=== PATIENT | female | born 1970 | race Caucasian/White ===

== ENCOUNTER 2017-10-14 08:57 | Emergency (ER) | payer BC ==
--- NOTE | 2017-10-14 09:15 | UC ---
Respiratory Complaint HPI - HPI Summary HPI Summary: 47 y/o female presents to the urgent care c/o productive cough, ODONNELL, chills, nasal congestion w/ yellowish nasal discharge since last week. Pt reports she had to use her inhaler last Saturday due to mild wheezing, which is now resolved. Mild low grade fever. Pain 4/10. Pt has taken Advil today to alleviate ODONNELL. Pt denies SOB, wheezing, chest pain, abdominal pain, N/V/D. - History of Current Complaint Stated Complaint: CONGESTION FEVER Time Seen by Provider: 10/14/17 09:10 Hx Obtained From: Patient Hx Last Menstrual Period: JANUARY 30, 2016 Onset/Duration: Gradual Onset, Lasting Weeks - 1 week, Still Present, Worse Since - yesterday Timing: Intermittent Episodes Severity Initially: Mild Severity Currently: Moderate Pain Intensity: 5 - headache Pain Scale Used: 0-10 Numeric Character: Cough: Productive - yellowish phlegm Aggravating Factors: Recumbent Position Alleviating Factors: Bronchodilator Associated Signs And Symptoms: Positive: Chills, Wheezing - rlast Saturday which resolved now, URI, Nasal Congestion, Sinus Discomfort - Risk Factors Pulmonary Embolism Risk Factors: Negative Cardiac Risk Factors: Negative Pseudomonas Risk Factors: Negative Tuberculosis Risk Factors: Negative - Allergies/Home Medications Allergies/Adverse Reactions: Allergies Allergy/AdvReac Type Severity Reaction Status Date / Time MS Penicillins [Penicillins] Allergy Severe Anaphylatic Verified 10/14/17 09:26 Shock MS Shellfish-derived Products Allergy Severe HIVES AND Verified 10/14/17 09:26 [Shellfish-derived Products] SWELLING MS Sulfa Antibiotics Allergy Intermediate Rash Verified 10/14/17 09:26 [Sulfa Antibiotics] PMH/Surg Hx/FS Hx/Imm Hx Previously Healthy: Yes Respiratory History: Asthma - Surgical History Surgical History: Yes Surgery Procedure, Year, and Place: TONSILLECTOMY, GALL BLADDER REMOVAL. GASTRIC BYPASS - Family History Known Family History: Positive: Cardiac Disease, Hypertension, Diabetes - Social History Occupation: Employed Full-time Lives: With Family Alcohol Use: Occasionally Substance Use Type: None Smoking Status (MU): Never Smoked Tobacco Have You Smoked in the Last Year: No Review of Systems Constitutional: Chills, Fatigue, Other Skin: Negative Eyes: Negative ENT: Nasal Discharge, Sinus Congestion Respiratory: Cough - productive Cardiovascular: Negative Gastrointestinal: Negative Genitourinary: Negative Motor: Negative Musculoskeletal: Negative Neurological: Headache Is Patient Immunocompromised?: No All Other Systems Reviewed And Are Negative: Yes Physical Exam Triage Information Reviewed: Yes - Additional Comments Vital Signs Reviewed: Yes General: well developed, well nourished female sitting in the examining table w/ o any apparent distress Eyes: Positive: Conjunctiva Clear - PERRLA, EOMI, fundi grossly normal ENT: Positive: Normal ENT inspection, Hearing grossly normal, Pharynx normal, Nasal congestion - edematous and erythematous nasal mucosa, Nasal drainage - yellowish drainage, TMs normal. Negative: Tonsillar swelling, Tonsillar exudate Neck: Positive: Supple, Nontender, No Lymphadenopathy Respiratory: no orthopnea or dyspnea. Able to speak in full sentences, no retractions or accessory muscle use, no tripod position, stridor, or head bobbing. CTA bilaterally, Positive posterior upper lungs w/ mild rhosnchi, no wheezing or rales. Cardiovascular: Positive: RRR, No Murmur, Pulses Normal, Brisk Capillary Refill Abdomen Description: Positive: Nontender, No Organomegaly, Soft. Negative: CVA Tenderness (R), CVA Tenderness (L) Bowel Sounds: Positive: Present Musculoskeletal Exam: Normal Musculoskeletal: Positive: Strength Intact, ROM Intact, No Edema Neurological Exam: Normal Psychological Exam: Normal Skin Exam: Normal Respiratory Course/Dx - Course Course Of Treatment: 47 y/o female presents to the urgent care c/o productive cough, ODONNELL, chills, nasal congestion w/ yellowish nasal discharge since last week. Pt reports she had to use her inhaler last Saturday due to mild wheezing, which is now resolved. Mild low grade fever. Pain 4/10. Pt has taken Advil today to alleviate ODONNELL. Pt denies SOB, wheezing, chest pain, abdominal pain, N/V/ D.Hx obtained. Pt with Acute bronchitis on examination. Pt Rx Z-stephanie, Tessalon PO and Albuterol inhaler to alleviate bronchospasm. Pt advised to increase fluid intake and eat well. if not improvement or worsening of symptoms to return to the urgent care or f/u with PCP for further management. pt understood and agreed with plan of care - Differential Dx/Diagnosis Differential Diagnosis/HQI/PQRI: Asthma, Bronchitis, Influenza, Lower Resp Infection, Sinusitis Provider Diagnoses: 1- Acute bronchitis. 2-cough Discharge - Discharge Plan Condition: Stable Disposition: HOME Prescriptions: Albuterol HFA INHALER* [Ventolin HFA Inhaler*] 1 - 2 puff INH Q6H PRN #1 mdi PRN Reason: Cough Azithromyxin STEPHANIE (NF) [Z-Stephanie (Zithromax) 250 mg tabs #6] 2 tab PO .TODAY, THEN 1 DAILY #6 tab Benzonatate CAP* [Tessalon 100 MG CAP*] 100 mg PO TID PRN #15 cap PRN Reason: Cough Patient Education Materials: Acute Bronchitis (ED) Referrals: [facility] [Outside] - 3 Days Additional Instructions: 1-Please take full course of antibiotic to avoid resistance. 2-Take Tessalon PO tabs as directed and use the albuterol inhaler to alleviate cough. Increase fluid intake, rest and eat well. 3- If symptoms do not improve or worsen or your develop SOB with fever and severe wheezing please go immediately to the ER further evaluation and treatment. 4- F/u with your PCP in 2-3 days for further management .
[2017-10-14 09:25] VITALS: BP 95/50
== END 2017-10-14 09:46 | disposition home or self-care (01) ==
LOC: UCCORT 08:57
DX: J20.9 Acute bronchitis, unspecified (principal); R05 Cough; J45.909 Unspecified asthma, uncomplicated; Z72.89 Other problems related to lifestyle
CPT/HCPCS: 99212; G0463

== ENCOUNTER 2019-12-01 07:31 | Emergency (ER) | payer BC ==
[2019-12-01 07:45] VITALS: BP 111/72
--- NOTE | 2019-12-01 08:08 | UC ---
Telehealth HPI HPI Summary: SPOKE TO THE PT. ON THE PHONE 49 Y/O FEMALE WITH 1 DAY HX OF FEVER, CHILLS, BODY ACHES , GENITAL SORES SYMPTOMS STARTED LAST NIGHT WHEN SHE WENT HOME FROM WORK , SYMPTOMS ARE MODERATED, 6 OUT 10 , WORSE WITH ACTIVITY , BETTER WITH REST, HAD A FEVER OF 101 LAST NIGHT , NO FEVER THIS MORNING, DENIES COUGH , NO SORE THROAT, NO COLD SYMPTOMS . HISTORY OF GENITAL HERPES , HAVING A BREAKOUT PT. IS A INFECTIOUS DISEASE NURSE , HAS NOT BEEN SEEING PTS FOR THE PAST 2 WEEKS Telehealth [facility] Endocrine/Hematology History: Denies: Hx Diabetes Respiratory History: Reports: Hx Asthma History: Reports: Other Problems/Disorders - HX OF GENITAL HERPES - Surgical History Surgery Procedure, Year, and Place: TONSILLECTOMY, GALL BLADDER REMOVAL. GASTRIC BYPASS Infectious Disease History: No - Family History Known Family History: Positive: None, Cardiac Disease, Hypertension, Diabetes - Social History Alcohol Use: Occasionally Substance Use Type: Reports: None Smoking Status (MU): Never Smoked Tobacco Have You Smoked in the Last Year: No [facility] Telehealth ROS All Other Systems Reviewed And Are Negative: Yes Positive: Fever, Chills, Fatigue Eyes: Negative ENT: Negative Respiratory: Negative Negative: Shortness Of Breath, Cough Gastrointestinal: Negative Genitourinary: Other - GENITAL SORES Psychological: Normal [facility] Telehealth Telehealth Physical Exam: PHYSICAL EXAM WAS NOT DONE , SPOKE TO THE PT. OVER THE PHONE DUE TO COVID19 PANDEMIC Appearance: Positive: Well-Appearing, Alert and Oriented, No Pain Distress, Well -[facility] Course/Dx Assessment/Plan: CONT. WITH REST, INCREASE FLUID, STAY HOME , KEEP SOCIAL DISTANCING / HAND WASHING, DO NOT TOUCH YOUR FACE WILL HAVE YOU OUT OF WORK FOR 7 DAYS AND FEVER FREE FOR 72 HRS WILL TREAT GENITAL HERPES WITH VALTRAX 1 GM BID X 7 DAYS Provider Diagnoses: Genital herpes, Viral illness Telehealth Disposition Provider Recommendation for Treatment: Urgent Care Telehealth Visit: Patient Consented Verbally to Telehealth Visit Telehealth Patient Statement: The patient should understand that they are communicating with their provider via a secure communication platform and that all the same privacy and confidentiality rules apply. They will also be responsible for copayments or coinsurances that apply to any Telehealth visit. Patient Identifiers: 2 Patient Identifiers Verified for Telehealth Visit Telehealth Visit Start Time: 07:50 Telehealth Visit End Time: 08:05 Telehealth Provider Attestation: The above services were appropriate to provide in a Telehealth setting.
== END 2019-12-01 08:10 | disposition home or self-care (01) ==
LOC: UCCORT 07:31
DX: A60.00 Herpesviral infection of urogenital system, unspecified (principal); B34.9 Viral infection, unspecified; J45.909 Unspecified asthma, uncomplicated
CPT/HCPCS: 99212; G0463